=== PATIENT | male | born 1990 | race Caucasian/White ===

== ENCOUNTER 2016-07-28 18:21 | Emergency (ER) | payer OTHER ==
[2016-07-28 18:30] VITALS: BP 112/85; PULSE 73; RESP 16; TEMP 98.2; O2SAT 96
--- NOTE | 2016-07-28 19:34 | EDPHY ---
H & P Smoking Status: Never smoked Time Seen by Provider: 07/28/16 18:35 HPI/ROS: CHIEF COMPLAINT: [left knee pain] HISTORY OF PRESENT ILLNESS: 26-year-old male presents emergency department complaining of left knee pain. Patient took a large stepped out of trash truck while at work and felt like his knee dislocated, he fell to the ground. Patient has been able to put some weight on his leg, it does feel unstable. Patient denies numbness or tingling in this leg. He reports he thinks had an injury to this knee in high school with wrestling. Patient denies other injuries. No head strike. REVIEW OF SYSTEMS: A comprehensive 10 point review of systems is otherwise negative aside from elements mentioned in the history of present illness. (Sammi Holguin) Physical Exam: GEN: Awake, alert, oriented, no acute distress RESP: nl resp effort MSK: Left knee with mild effusion, full flexion and extension, no medial joint line tenderness, mild lateral joint line tenderness, negative valgus and varus stress, negative medial and lateral Fredo, negative anterior drawer, negative Arlette's, 2+ pedal pulses, sensation intact to light touch SKIN: No break in skin (Sammi Holguin) Constitutional: Initial Vital Signs Temperature (C) 36.8 C 07/28/16 18:26 Heart Rate 73 07/28/16 18:26 Respiratory Rate 16 07/28/16 18:26 Blood Pressure 112/85 H 07/28/16 18:26 O2 Sat (%) 96 07/28/16 18:26 O2 Delivery Mode Room Air Allergies/Adverse Reactions: No Known Allergies Allergy (Unverified 07/28/16 18:25) Home Medications: Medication Instructions Recorded Claritin 07/28/16 MDM/Departure - MDM Diagnostics: Left knee x-ray independently reviewed by me- Impression: Moderate suprapatellar joint effusion. No evidence for acute fracture. Dictated By: Dhaval Ruff MD (Sammi Holguin) ED Course/Re-evaluation: The patient wasevaluatedand managed by themidlevel provider. Idiscussed the patient's presentation and course with thephysicianassistantor nurse practitionerand agree with theevaluation. My co-signature indicates that I have reviewed this chart and I agree with the findings and plan of care as documented. I am the secondary supervisingphysician. (Eveline Sanders) - Depart Disposition: Home, Routine, Self-Care Clinical Impression: Left knee sprain Qualifiers: Encounter type: initial encounter Involved ligament of knee: unspecified ligament Qualified Code(s): S83.92XA - Sprain of unspecified site of left knee, initial encounter Condition: Good Instructions: Knee Sprain (ED) Additional Instructions: Rest, ice, elevate, take 600mg of ibuprofen every 8 hours with food for 3-5 days as needed for pain and swelling. Wear knee immobilizer, use crutches as needed for weight-bearing. Follow up with the orthopedist at 1st available appointment. Follow up with worker's compensation. Return to the emergency department for any numbness, tingling, discoloration of you limb or other concerns. Stand Alone Forms: Work Comp Follow Up Referrals: Sebas Bhatia MD [Medical Doctor] - As per Instructions (Orthopedist on-call)
== END 2016-07-28 20:12 | disposition home or self-care (01) ==
DX: S83.92XA Sprain of unspecified site of left knee, initial encounter (principal); W18.39XA Other fall on same level, initial encounter; Y92.69 Other specified industrial and construction area as the place of occurrence of the external cause; Y99.0 Civilian activity done for income or pay; Y93.89 Activity, other specified
CPT/HCPCS: L1830